=== PATIENT | female | born 1940 | race Caucasian/White ===

== ENCOUNTER 2020-01-22 13:17 | Emergency (ER) | payer MEDICARE, OTHER ==
--- NOTE | 2020-01-22 13:29 | ERPHSYRPT ---
- History of Present Illness Time Seen by Provider: 01/22/20 13:29 Source: patient Exam Limitations: no limitations Physician History: This is an 79-year-old white female who rolled her ankle 2 days ago. She has been been walking on it using a cane to ambulate. The pain has not improved and there is now swelling and some bruising present. Patient is not on any anticoagulation therapy. Method of Injury: twisted Occurred: days ago (2) Quality: aching Severity of Pain-Max: mild Severity of Pain-Current: mild Lower Extremities Pain: foot: right, ankle: right Modifying Factors: Improves With: movement Associated Symptoms: other (Patient can bear weight but hurts to do so) Allergies/Adverse Reactions: cephalexin monohydrate [From Keflex] Allergy (Severe, Verified 01/22/20 13:48) erythromycin base [Erythromycin Base] Allergy (Severe, Verified 01/22/20 13:48) strawberry Allergy (Verified 01/22/20 13:48) Home Medications: Amlodipine Besylate 10 mg [Norvasc 10 MG] 10 mg PO DAILY 08/16/12 [History] Aspirin EC 81 mg [Ecotrin 81 mg] 81 mg PO DAILY 08/16/12 [History] Hydrocodone/Acetaminophen [Hydrocodone-Acetamin 10-325 mg] 1 tab PO TID 01/22/20 [History] Losartan/Hydrochlorothiazide [Losartan-Hctz 100-25 mg Tab] 1 tab PO DAILY 01/22/20 [History] Mirtazapine 15 mg PO DAILY 01/22/20 [History] Temazepam 15 mg [Restoril 15 MG] 15 mg PO HS 01/22/20 [History] Hx Tetanus, Diphtheria Vaccination/Date Given: Yes Hx Influenza Vaccination/Date Given: Yes Hx Pneumococcal Vaccination/Date Given: Yes Travel Risk - International Travel Have you traveled outside of the country in past 3 weeks: No - Coronavirus Screening Are you exhibiting any of the following symptoms?: No Close contact with a COVID-19 positive Pt in past 14-21 Days: No - Review of Systems Constitutional: No Symptoms Eyes: No Symptoms Ears, Nose, & Throat: No Symptoms Respiratory: No Symptoms Cardiac: No Symptoms Abdominal/Gastrointestinal: No Symptoms Genitourinary Symptoms: No Symptoms Musculoskeletal: Injury (Right foot and ankle) Skin: No Symptoms Neurological: No Symptoms Psychological: No Symptoms Endocrine: No Symptoms Hematologic/Lymphatic: No Symptoms Immunological/Allergic: No Symptoms All Other Systems: Reviewed and Negative - Past Medical History Pertinent Past Medical History: Yes Neurological History: No Pertinent History ENT History: Cataracts Cardiac History: Hypertension Respiratory History: No Pertinent History Endocrine Medical History: No Pertinent History Musculoskeletal History: No Pertinent History GI Medical History: No Pertinent History History: No Pertinent History Psycho-Social History: Depression Female Reproductive Disorders: No Pertinent History - Past Surgical History Past Surgical History: Yes Neuro Surgical History: No Pertinent History Cardiac: No Pertinent History Respiratory: No Pertinent History Gastrointestinal: No Pertinent History Genitourinary: No Pertinent History Musculoskeletal: Orthopedic Surgery, Other Female Surgical History: Lumpectomy, Tubal Ligation Other Surgical History: EGD,stevie rotator cuff ,Left knee replacement,stevie feet spurs,,right breast lumpectomy(benign),stevie hallux nail evulsion,stevie cataract removal with lens implant,Tubal Lig. , childbirth x three - Social History Smoking Status: Never smoker Exposure to second hand smoke: Yes Drug Use: none Patient Lives Alone: No - Nursing Vital Signs Nursing Vital Signs: Initial Vital Signs Pulse Rate 84 01/22/20 13:38 Blood Pressure 154/78 01/22/20 13:38 O2 Sat by Pulse Oximetry 96 01/22/20 13:38 Pain Scale Pain Intensity 6 - Physical Exam General Appearance: no apparent distress, alert, anxiety Eyes, Ears, Nose, Throat Exam: normal ENT inspection, moist mucous membranes Neck Exam: normal inspection, non-tender, supple, full range of motion Cardiovascular/Respiratory Exam: chest non-tender, no respiratory distress Gastrointestinal/Abdominal Exam: non-tender Back Exam: normal inspection, normal range of motion, No CVA tenderness, No vertebral tenderness Hips Exam: bilateral: non-tender, normal inspection, normal range of motion, no evidence of injury Legs Exam: bilateral leg: non-tender, normal inspection, normal range of motion, no evidence of injury Knees Exam: bilateral knee: non-tender, normal inspection, normal range of motion, no evidence of injury Ankle Exam: right ankle: bone tenderness, ecchymosis, limited range of motion, soft tissue tenderness, swelling, left ankle: non-tender, normal inspection, normal range of motion, no evidence of injury Foot Exam: right foot: ecchymosis, soft tissue tenderness, swelling, left foot: non-tender, normal inspection, normal range of motion, no evidence of injury Neuro/Tendon Exam: normal sensation, normal motor functions, normal tendon functions Mental Status Exam: alert, oriented x 3, cooperative Skin Exam: normal color, warm, dry SpO2 Interpretation: normal O2 Delivery: Room Air - Course Nursing assessment & vital signs reviewed: Yes Ordered Tests: Active Orders 24 hr Category Date Time Status ANKLE (3 VIEWS) Stat Exams 01/22/20 13:52 Completed FOOT (MINIMUM 3 VIEWS) Stat Exams 01/22/20 13:52 Completed - Progress Progress: unchanged Progress Note: 01/22/20 14:44 X-ray of the right foot reveals no acute fracture or dislocation. X-ray of the right ankle reveals a nondisplaced oblique fracture of the distal fibula. Counseled pt/family regarding: diagnosis, need for follow-up, rad results - Departure Departure Disposition: Home Clinical Impression: Fracture of distal fibula Condition: Stable Critical Care Time: No Referrals: TAMMY SCHNEIDER MD [Primary Care Provider] - [facility]-Ortho M-F [phone] Additional Instructions: Light weightbearing only. Ice pack to site 3 times a day. Follow-up in the [facility] orthopedic clinic tomorrow morning at 8 AM.
--- NOTE | 2020-01-22 14:23 | XRAY ---
Indication: Pain, swelling, and bruising following twisting injury 2 days ago. Comparison: None 3 nonweightbearing views right foot demonstrates osteopenia, moderate 1st MTP degenerative changes, small heel spurs, and small navicularis/cuboid accessory ossicles. No other bony, articular, or soft tissue abnormalities.
--- NOTE | 2020-01-22 14:26 | XRAY ---
Indication: Pain, swelling, and bruising following twisting injury 2 days ago. Comparison: None 3 view right ankle demonstrates nondisplaced oblique fracture distal fibula with soft tissue swelling. Elsewhere osteopenia, small heel spurs, and small cuboid accessory ossicle. No other bony, articular, or soft tissue abnormalities.
[2020-01-22 15:29] VITALS: BP 148/72; PULSE 80; O2SAT 98
== END 2020-01-22 15:55 | disposition home or self-care (01) ==
LOC: ED 13:17
DX: S82.401A Unspecified fracture of shaft of right fibula, initial encounter for closed fracture (principal); M25.571 Pain in right ankle and joints of right foot; X50.1XXA Overexertion from prolonged static or awkward postures, initial encounter; Y93.01 Activity, walking, marching and hiking; Y92.9 Unspecified place or not applicable; Z79.899 Other long term (current) drug therapy; I10 Essential (primary) hypertension
CPT/HCPCS: 29505; 73610; 73630; 99284

== ENCOUNTER 2023-01-25 15:35 | Emergency (ER) | payer MEDICARE, OTHER ==
[2023-01-25 15:50] VITALS: TEMP 97.8
[2023-01-25] MEDS ORDERED: TORAdol 30 mg Injection IM ONE (16:18)
--- NOTE | 2023-01-25 16:25 | ERPHSYRPT ---
- History of Present Illness Source: patient, other (Daughter) Patient Subjective Stated Complaint: Pt states that when she stepped out of bed today her left foot hurt Triage Nursing Assessment: Pt brought by daughter in law to the ER, selina wngarcia, rates pain in left foot as 8-9/10, pain goes across the top of the foot, no swelling or bruising noted, denies injury, denies twisting or rolling it when stepping out of bed, pain with palpatation, doesn't appear to be in any distress Physician History: 82 yo WF w L foot pain starting earlier today. Pain is 10 on scale. She denies injury/fever/gout. Pt using a cane today but usually ambulates wo a walker or cane. Method of Injury: unknown Occurred: other (Today) Quality: constant, aching Severity of Pain-Max: severe Severity of Pain-Current: severe Lower Extremities Pain: foot: left Modifying Factors: Improves With: movement Associated Symptoms: none Allergies/Adverse Reactions: cephalexin monohydrate [From Keflex] Allergy (Severe, Verified 01/25/23 15:50) erythromycin base [Erythromycin Base] Allergy (Severe, Verified 01/25/23 15:50) strawberry Allergy (Verified 01/25/23 15:50) Home Medications: Amlodipine Besylate 10 mg [Norvasc 10 MG] 5 mg PO BID 08/16/12 [History] Aspirin EC 81 mg [Ecotrin 81 mg] 81 mg PO DAILY 08/16/12 [History] Hydrocodone/Acetaminophen [Hydrocodone-Acetamin 10-325 mg] 1 tab PO TID 01/22/20 [History] Mirtazapine 15 mg PO DAILY 01/22/20 [History] Temazepam 15 mg [Restoril 15 MG] 15 mg PO HS 01/22/20 [History] Gabapentin [Neurontin ] 300 mg PO TID 01/25/23 [History] Hydralazine HCl 100 mg PO BID 01/25/23 [History] Losartan Potassium 100 mg PO DAILY 01/25/23 [History] hydrOXYzine HCL [Hydroxyzine HCl] 50 mg PO BID 01/25/23 [History] Hx Tetanus, Diphtheria Vaccination/Date Given: Yes Hx Influenza Vaccination/Date Given: Yes Hx Pneumococcal Vaccination/Date Given: Yes Travel Risk - International Travel Have you traveled outside of the country in past 3 weeks: No - Coronavirus Screening Are you exhibiting any of the following symptoms?: No Close contact with a COVID-19 positive Pt in past 14-21 Days: No - Vaccine Status Have you recieved a Covid-19 vaccination: Yes 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 - Vaccination Dates Dates if Unknown: unk - Review of Systems Constitutional: No Symptoms Eyes: No Symptoms Ears, Nose, & Throat: No Symptoms Respiratory: No Symptoms Cardiac: No Symptoms Abdominal/Gastrointestinal: No Symptoms Genitourinary Symptoms: No Symptoms Skin: No Symptoms Neurological: No Symptoms Psychological: No Symptoms Endocrine: No Symptoms Hematologic/Lymphatic: No Symptoms Immunological/Allergic: No Symptoms - Past Medical History Pertinent Past Medical History: Yes Neurological History: No Pertinent History ENT History: Cataracts Cardiac History: Hypertension Respiratory History: No Pertinent History Endocrine Medical History: No Pertinent History Musculoskeletal History: No Pertinent History GI Medical History: No Pertinent History History: No Pertinent History Psycho-Social History: Depression Female Reproductive Disorders: No Pertinent History - Past Surgical History Past Surgical History: Yes Neuro Surgical History: No Pertinent History Cardiac: No Pertinent History Respiratory: No Pertinent History Gastrointestinal: No Pertinent History Genitourinary: No Pertinent History Musculoskeletal: Orthopedic Surgery, Other Female Surgical History: Lumpectomy, Tubal Ligation Other Surgical History: EGD,stevie rotator cuff ,Left knee replacement,stevie feet spurs,,right breast lumpectomy(benign),stevie hallux nail evulsion,stevie cataract removal with lens implant,Tubal Lig. , childbirth x three - Social History Smoking Status: Never smoker Exposure to second hand smoke: No Drug Use: none Patient Lives Alone: Yes - Nursing Vital Signs Nursing Vital Signs: Initial Vital Signs Temperature 97.8 F 01/25/23 15:41 Pulse Rate 81 01/25/23 15:41 Blood Pressure 122/73 01/25/23 15:41 O2 Sat by Pulse Oximetry 97 01/25/23 15:41 Pain Scale Pain Intensity 4 WNL - Physical Exam General Appearance: no apparent distress Eyes, Ears, Nose, Throat Exam: normal ENT inspection, TMs normal, pharynx constance l, moist mucous membranes Neck Exam: normal inspection, non-tender, supple, full range of motion, No Brudzinski, No Kernig's, No meningismus, No carotid bruit Cardiovascular/Respiratory Exam: normal breath sounds, regular rate/rhythm Gastrointestinal/Abdominal Exam: non-tender, soft Back Exam: normal inspection, normal range of motion, No CVA tenderness, No vertebral tenderness Hips Exam: bilateral: non-tender, normal inspection, normal range of motion, no evidence of injury Legs Exam: bilateral leg: non-tender, normal inspection, normal range of motion, no evidence of injury Knees Exam: bilateral knee: non-tender, normal inspection, normal range of motion, no evidence of injury Ankle Exam: bilateral ankle: non-tender, normal inspection, normal range of motion, no evidence of injury Foot Exam: left foot: other (L dorsal foot very TTP/Good pedal pulse, distal sensation, and capillary return/No edema or erythema/Good pedal pulse, distal sensation, and capillary return) Neuro/Tendon Exam: normal sensation, normal motor functions, normal tendon functions, responds to pain Mental Status Exam: alert, oriented x 3, cooperative Skin Exam: normal color, warm, dry SpO2 Interpretation: normal SpO2: 97 O2 Delivery: Room Air - Course Nursing assessment & vital signs reviewed: Yes - Radiology Exams Foot X-ray Interpretation: Reviewed by me (L foot neg for fx), Discussed w/ radiologist - CT Exams Lower Extremity CT Interpretation: Discussed w/radiologist (L cortical talar fx) Ordered Tests: Active Orders 24 hr Category Date Time Status FOOT (MINIMUM 3 VIEWS) Stat Exams 01/25/23 15:59 Completed LOWER EXTREMITY WO CONTRAST [CT] Stat Exams 01/25/23 18:17 Taken ESR [Erythrocyte Sedimentation Rate] Stat Lab 01/25/23 17:25 Completed Uric Acid Stat Lab 01/25/23 17:25 Completed Medication Summary Discontinued Medications Generic Name Dose Route Start Last Admin Trade Name Rossy PRN Reason Stop Dose Admin Hydrocodone Bitart/Acetaminophen 2 tab 01/25/23 19:21 01/25/23 19:27 Hydrocodone/Apap 5/325 1 Tab Tablet PO 01/25/23 19:22 2 tab SENT HOME W/ PATIENT ONE Administration Hydrocodone Bitart/Acetaminophen Confirm 01/25/23 19:23 Hydrocodone/Apap 5/325 1 Tab Tablet Administered 01/25/23 19:24 Dose 2 tab .ROUTE .STK-MED ONE Ketorolac Tromethamine 15 mg 01/25/23 16:18 01/25/23 16:36 Ketorolac Tromethamine 30 Mg/Ml Inj IM 01/25/23 16:19 15 mg STAT ONE Administration Ketorolac Tromethamine Confirm 01/25/23 16:34 Ketorolac Tromethamine 30 Mg/Ml Inj Administered 01/25/23 16:35 Dose 30 mg .ROUTE .STK-MED ONE Lab/Rad Data: Laboratory Results 01/25/23 01/25/23 Range/Units 17:25 17:25 ESR 32 H (0-20) mm/hr Uric Acid 3.8 (2.6-6.0) mg/dL - Progress Progress Note: 01/25/23 19:32 Nursing note and vital signs reviewed No food or housing insecurities noted Additional history per daughter and later son 15mg IM Toradol w improvement in pain XR result reviewed and shared w pt/family Lab results reviewed and shared w pt/family CT result reviewed and shared w pt/family Pt to f/u w Dr. Denny Efra wrap/post-op shoe L foot per nursing/NVI 01/25/23 19:36 Counseled pt/family regarding: lab results, diagnosis, need for follow-up, rad results Medical Desision Making - Independent Historian Additional History obtained from: Child - Diagnostic Testing Radiological Interpretation: Reviewed by me, Discussed w/ radiologist - Risk of complications The pt has a mod risk of morbidity or mortality based on: Need for prescription drug management - Departure Departure Disposition: Home Clinical Impression: Fracture of left talus Condition: Stable Critical Care Time: No Referrals: TAMMY SCHNEIDER MD [Primary Care Provider] - Follow up/PCP as directed MALVIN DUARTE DPM [ACTIVE STAFF] - Follow up/PCP as directed Instructions: Ankle Fracture (DC) Additional Instructions: Pain meds as needed(Stool softener w pain meds) Follow up with Orthopedic clinic on Sunday 8-10 AM Ice for 12-24 hours No weight bearing Prescriptions: Hydrocodone/Acetaminophen [Hydrocodone-Acetamin 5-325 mg] 1 tab PO Q6HPRN PRN #8 tablet MDD 4 PRN Reason: Pain
[2023-01-25] MEDS ORDERED: TORAdol 30 mg Injection ONE (16:34)
--- NOTE | 2023-01-25 16:56 | XRAY ---
Indication: pain. Comparison: None 3 nonweightbearing views left foot demonstrates osteopenia, tiny spurring head 5th metatarsal, small heel spurs, tiny cuboid accessory ossicle, and mild scattered vascular calcifications. No other bony, articular, or soft tissue abnormalities.
[2023-01-25 17:54] VITALS: BP 145/57
[2023-01-25 19:21] VITALS: O2SAT 97
[2023-01-25] MEDS ORDERED: NORCO 5/325 MG PO ONE (19:21)
[2023-01-25] MEDS ORDERED: NORCO 5/325 MG ONE (19:23)
[2023-01-25 19:30] VITALS: PULSE 89; RESP 18
--- NOTE | 2023-01-26 09:08 | XRAY ---
Indication: Pain. No known injury. Multiple contiguous axial images obtained through the left ankle/foot without contrast. Sagittal and coronal reformatted images obtained. Comparison: None Osseous structures demineralized. Left ankle/foot mortise appears anatomic. Negative for tarsal coalition. Tibial plafond and talar dome appears smooth. Lateral margin talus demonstrates tiny linear/curvilinear ossifications concerning for cortical fracture of uncertain chronicity. Distal tibialis posterior tendon demonstrates tiny curvilinear ossifications adjacent to navicular. Peroneous longus tendon demonstrates similar ossifications as it courses adjacent to the cuboid. Above tendon ossifications presumed sequela old injury/inflammation. Incidental small posterior/plantar heel spurs and small cuboid accessory ossicle. No focal solid/cystic soft tissue mass or abnormal fluid collection. Remaining visualized noncontrasted soft tissues including Achilles tendon unremarkable. Impression: 1. Cortical fracture lateral margin talus of uncertain chronicity. 2. 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 3. Incidental osteopenia and heel spurs.
== END 2023-01-25 19:45 | disposition home or self-care (01) ==
LOC: ED 15:35
DX: S92.192A Other fracture of left talus, initial encounter for closed fracture (principal); M79.672 Pain in left foot; I10 Essential (primary) hypertension; Z79.891 Long term (current) use of opiate analgesic; Z79.899 Other long term (current) drug therapy
CPT/HCPCS: 36415; 73630; 73700; 84550; 85652; 96372; 99284; J1885; A9270-GY

== ENCOUNTER 2024-02-08 17:41 | Emergency (ER) | payer MEDICARE, OTHER ==
[2024-02-08 18:07] VITALS: TEMP 98.3
--- NOTE | 2024-02-08 18:40 | ERPHSYRPT ---
- History of Present Illness Source: patient, EMS Exam Limitations: no limitations Patient Subjective Stated Complaint: Pt reports she tripped when getting out of vehicle and fell. Complaining of pain to sternum, head and neck. States she thinks she hit her head but did not loose consciousness. Triage Nursing Assessment: Pt alert and oriented x3. Respirations easy/nonlabored. Skin w/p/d. Ambulate with cane. No obvious deformities/contusions/skin discoloration to head/neck/chest. Hx Tetanus, Diphtheria Vaccination/Date Given: Yes Hx Influenza Vaccination/Date Given: Yes (2022) Hx Pneumococcal Vaccination/Date Given: Yes <NERY MITCHELL - Last Filed: 02/08/24 18:37> <BERNIE ROSAS - Last Filed: 02/08/24 20:07> - History of Present Illness Time Seen by Provider: 02/08/24 17:44 Physician History: 83-year-old with history of hypertension is brought in the ER by EMS after she was getting out of her truck, tripped and fell forward hitting her chest against the ground. Did hit her head as well. No loss of consciousness. Patient is complaining of pain mainly in the sternum with no difficulty breathing. Pain is aggravated with palpation and deep breathing. No abdominal pain nausea or vomiting. Denies any numbness tingling or focal weakness. Minimal headache. Denies any neck pain. No weakness of upper or lower extremities. She has minimal abrasion to the chin. (NERY MITCHELL) Allergies/Adverse Reactions: cephalexin monohydrate [From Keflex] Allergy (Severe, Verified 02/08/24 18:00) erythromycin base [Erythromycin Base] Allergy (Severe, Verified 02/08/24 18:00) strawberry Allergy (Verified 02/08/24 18:00) Home Medications: Amlodipine Besylate 10 mg [Norvasc 10 MG] 5 mg PO BID 08/16/12 [History] Aspirin EC 81 mg [Ecotrin 81 mg] 81 mg PO DAILY 08/16/12 [History] Hydrocodone/Acetaminophen [Hydrocodone-Acetamin 10-325 mg] 1 tab PO TID 01/22/20 [History] Mirtazapine 15 mg PO DAILY 01/22/20 [History] Temazepam 15 mg [Restoril 15 MG] 15 mg PO HS 01/22/20 [History] Gabapentin [Neurontin ] 300 mg PO TID 01/25/23 [History] Hydralazine HCl 100 mg PO BID 01/25/23 [History] Losartan Potassium 100 mg PO DAILY 01/25/23 [History] hydrOXYzine HCL [Hydroxyzine HCl] 50 mg PO BID 01/25/23 [History] Travel Risk - International Travel Have you traveled outside of the country in past 3 weeks: No - Emerging Infectious Disease Are you exhibiting symptoms associated with any current EIDs: No <NERY MITCHELL - Last Filed: 02/08/24 18:37> - Review of Systems Constitutional: No Symptoms Eyes: No Symptoms, Foreign Body Sensation Ears, Nose, & Throat: Mouth Pain Respiratory: No Symptoms Cardiac: Chest Pain Abdominal/Gastrointestinal: No Symptoms Genitourinary Symptoms: No Symptoms Musculoskeletal: Fall Skin: Skin Lesions Neurological: No Symptoms Hematologic/Lymphatic: No Symptoms Immunological/Allergic: No Symptoms <NERY MITCHELL - Last Filed: 02/08/24 18:37> - Past Medical History Pertinent Past Medical History: Yes Neurological History: Migraines ENT History: Cataracts Cardiac History: Hypertension Respiratory History: No Pertinent History Endocrine Medical History: No Pertinent History Musculoskeletal History: Osteoarthritis, Osteoporosis, Other GI Medical History: No Pertinent History History: No Pertinent History Psycho-Social History: Depression Female Reproductive Disorders: No Pertinent History Other Medical History: DAUGHTER PRESENT - STATES HX OF OSTEOPOROSIS/PENIA BUT PATIENT DIDN'T REMEMBER. DAUGHTER ALSO STATES SCOLIOSIS. SX HX: LEFT ROTATOR CUFF REPAIRS, BILATERAL TOTAL KNEE REPLACEMENTS MOST RECENT WAS LEFT BUT > 10 YEARS AGO. - Past Surgical History Past Surgical History: Yes Neuro Surgical History: No Pertinent History Cardiac: No Pertinent History Respiratory: No Pertinent History Gastrointestinal: No Pertinent History Genitourinary: No Pertinent History Musculoskeletal: Orthopedic Surgery, Other Female Surgical History: Lumpectomy, Tubal Ligation Other Surgical History: EGD,stevie rotator cuff ,Left knee replacement,stevie feet spu rs,,right breast lumpectomy(benign),stevie hallux nail evulsion,stevie cataract removal with lens implant,Tubal Lig. , childbirth x three - Social History Smoking Status: Never smoker Exposure to second hand smoke: No Drug Use: none Patient Lives Alone: Yes - Social Determinants of Health Will the patient participate in the screening: Declined to provide <NERY MITCHELL - Last Filed: 02/08/24 18:37> - [place] Coma Score Best Eye Response ([place]): (4) open spontaneously Best Verbal Response ([place]): (5) oriented Best Motor Response ([place]): (6) obeys commands [place] Total: 15 - Physical Exam General Appearance: no apparent distress, alert Head Injury: no evidence of injury, No Rosen's Sign, No contusions, No tenderness Eye Exam: PERRL/EOMI, eyes nml inspection ENT Exam: airway nml, other (Superficial abrasions to the chin) Neck Exam: supple, trachea midline, full range of motion, normal alignment, normal inspection Respiratory/Chest Exam: chest tenderness (Midsternal area with no crepitus), normal breath sounds, No respiratory distress Cardiovascular Exam: normal heart sounds, regular rate/rhythm Gastrointestinal Exam: soft, normal bowel sounds, No tenderness Back Exam: normal inspection, normal range of motion Extremity Exam: normal inspection, normal range of motion, capillary refill <3 sec Neurologic Exam: alert, oriented x 3, cooperative, 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 nml as tested, normal mood/affect, sensation nml, No nml cerebellar function, No motor deficits Skin Exam: normal color SpO2 Interpretation: normal SpO2: 95 O2 Delivery: Room Air <NERY MITCHELL - Last Filed: 02/08/24 18:37> - Nursing Vital Signs Nursing Vital Signs: Initial Vital Signs Temperature 98.3 F 02/08/24 17:53 Pulse Rate 72 02/08/24 17:53 Respiratory Rate 17 02/08/24 17:53 Blood Pressure 235/86 02/08/24 17:53 O2 Sat by Pulse Oximetry 98 02/08/24 17:53 Pain Scale Pain Intensity 5 - Course Nursing assessment & vital signs reviewed: Yes <BERNIE ROSAS - Last Filed: 02/08/24 20:07> Ordered Tests: Active Orders 24 hr Category Date Time Status CERVICAL SPINE WO CONTRAST [CT] Stat Exams 02/08/24 18:18 Completed CHEST WITHOUT CONTRAST [CT] Stat Exams 02/08/24 18:18 Completed HEAD WITHOUT CONTRAST [CT] Stat Exams 02/08/24 18:17 Completed Medication Summary Discontinued Medications Generic Name Dose Route Start Last Admin Trade Name Rossy PRN Reason Stop Dose Admin Acetaminophen 975 mg 02/08/24 18:39 02/08/24 18:48 Acetaminophen 325 Mg Tablet PO 02/08/24 18:40 975 mg STAT STA Administration Acetaminophen Confirm 02/08/24 18:47 Acetaminophen 325 Mg Tablet Administered 02/08/24 18:48 Dose 975 mg .ROUTE .STK-MED ONE Hydralazine HCl 10 mg 02/08/24 18:46 02/08/24 18:48 Hydralazine Hcl 20 Mg/Ml Vial IV 02/08/24 18:47 10 mg STAT ONE Administration Hydralazine HCl Confirm 02/08/24 18:47 Hydralazine Hcl 20 Mg/Ml Vial Administered 02/08/24 18:48 Dose 20 mg .ROUTE .STK-MED ONE - Progress Progress: improved, pain not gone completely Counseled pt/family regarding: diagnosis, need for follow-up, rad results <BERNIE ROSAS - Last Filed: 02/08/24 20:07> - Progress Progress Note: 02/08/24 19:[address] scan of the chest without contrast was interpreted by the radiologist. The impression states few bilateral pulmonary nodular densities likely granulomas. There are no pulmonary contusions or pneumothorax. There is anterior wedging of T9 vertebral body, likely secondary to osteoporosis. There is mild cardiomegaly with mild pericardial thickening/effusion. CT scan of the head without contrast shows no intracranial bleed or territorial infarction seen 02/08/24 20:[address] scan of the cervical spine without contrast was interpreted by the radiologist and I reviewed the impression. The impression states no acute osseous abnormality. There is straightening with grade 1 anterolisthesis at C2- C3 level. There is multilevel cervical spondylitic changes with disc bulges more evident in the lower cervical spine. The left thyroid lobe shows a heterogeneous nodule present. Ultrasound correlation recommended. I discussed these findings with the patient and her family. (BERNIE ROSAS) Medical Desision Making - Independent Historian Additional History obtained from: Family - Diagnostic Testing Diagnostic test were ordered, analyzed, and reviewed by me: Yes Radiological Interpretation: Reviewed by me, Teleradiologist Report - Risk of complications Low Risk: Low risk of morbidity from additional dx testing or treatment <BERNIE ROSAS - Last Filed: 02/08/24 20:07> <NERY MITCHELL - Last Filed: 02/08/24 18:37> - Departure Departure Disposition: Home Critical Care Time: No <ARON ROSASDO BraedenAroldo - Last Filed: 02/08/24 20:07> - Departure Clinical Impression: Fall with no significant injury, Left thyroid nodule Condition: Stable Referrals: TAMMY SCHNEIDER MD [Primary Care Provider] - Follow up/PCP as directed Additional Instructions: Take all your medications as prescribed. Call your primary care provider on 02/11/2024, to make arrangements for a follow-up appointment to be seen in the next 3 to 5 days. Discussed the left thyroid nodule with your primary care provider. Return to the emergency department if there is any concerns or new areas of aches and pains prior to 02/11/2024
[2024-02-08] MEDS ORDERED: TYLENOL 325 MG ONE (18:47)
[2024-02-08] MEDS ORDERED: APRESOLINE 20 MG/ML INJ ONE (18:47)
[2024-02-08] MEDS: APRESOLINE 20 MG/ML INJ IV ONE (18:48)
[2024-02-08] MEDS: TYLENOL 325 MG PO STA (18:48)
--- NOTE | 2024-02-08 19:42 | XRAY ---
CLINICAL HISTORY: fall COMPARISON: None. TECHNIQUE: An axial non-contrast CT scan of the brain was performed from the skull base to the high parietal region with coronal and sagittal reformats. One of the following dose reduction techniques was utilized for this exam: Automated exposure control, adjustment of the mA and/or kV according to patient size, and use of iterative reconstruction. CTDI;72.29mGy, DLP: 1507.31mGy*cm. FINDINGS: Brain Parenchyma: There is evidence of bilateral periventricular and subcortical and deep white matter hypodensities involving both cerebral hemispheres. Juárez-white matter differentiation is however preserved. No evidence of acute infarct, hemorrhage, or mass effect. Ventricular System: Mildly prominent intra and extra-ventricular CSF spaces are noted signifying senile involutionary changes in the brain. Subarachnoid Spaces: No evidence of subarachnoid hemorrhage or extra-axial fluid collections. Cerebellum and Brainstem: Normal size and signal. No masses, lesions, or areas of abnormal signal. Orbits: Normal appearance of the globes, optic nerves, and extraocular muscles. No evidence of orbital masses or abnormal signals. Sinuses: Clear paranasal sinuses. No evidence of sinusitis or mucosal thickening. Mastoid Air Cells: Clear mastoid air cells. No evidence of mastoiditis. Skull and Meninges: Normal skull morphology. IMPRESSION: 1. The above-mentioned findings likely signify extensive microvascular ischemic changes and senile changes. 2. No intracranial bleed or territorial infarct is seen. 3. Early changes of acute ischemia are sometimes not visible on CT , further evaluation with MRI is suggested. Electronically Signed by: Camilla Herrmann MD. (02/08/2024 19:39:11 EDT)
--- NOTE | 2024-02-08 19:47 | XRAY ---
CLINICAL HISTORY: fall COMPARISON: None. TECHNIQUE: Contiguous axial CT images of the chest were acquired without administration of intravenous contrast. Coronal and sagittal reconstructions were obtained. One of the following dose reduction techniques were utilized for this exam: Automated exposure control, adjustment of the mA and/or kV according to patient size, use of iterative reconstruction. FINDINGS: Lungs: Few bilateral pulmonary, predominantly subpleural nodular densities seen measuring up to 5 mm (inferior lingular nodule ), some of them are seen calcified likely granulomatous. No pulmonary mass lesions. No pulmonary contusion or pneumothorax. Bilateral basal pulmonary atelectatic bands. No evidence of interstitial lung disease or emphysema. No pleural effusion or pleural thickening. Mediastinum: The mediastinum is normal in size and contour. No mediastinal mass or abnormal lymphadenopathy. Mild cardiomegaly with mild pericardial thickening/effusion. Atheromatous calcification of the aorta. Hilar Structures: The hilar structures appear normal without enlargement or abnormality. Trachea and Main Bronchi: The trachea and main bronchi are patent without evidence of obstruction or abnormality. Chest Wall: The chest wall is unremarkable with no evidence of soft tissue or bony abnormalities. Lower neck : Left thyroid lobe nodule measuring 2.4 X 2.8 cm (for further US assessment ). Upper Abdomen: Gall bladder stone is noted. Bones: Spondylodegenrative changes. Osteopenia. Anterior wedging of the T9 vertebral body (likely osteoporotic fracture). Internal fixation of left humeral head by metallic screw. Old healed fracture of lateral segment of right 10th rib. Osteoarthritic changes of both glenohumeral joints. IMPRESSION: 1. Few bilateral pulmonary nodular densities (some are calcified ), likely granulomatous. As per Fleischner Society guidelines, no follow-up needed if low risk. 2. No pulmonary contusion or pneumothorax. 3. Anterior wedging of the T9 vertebral body (likely osteoporotic fracture). 4. Left thyroid lobe nodule for US assessment. 5. Mild cardiomegaly with mild pericardial thickening/effusion. Electronically Signed by: Camilla Herrmann MD. (02/08/2024 19:42:23 EDT)
--- NOTE | 2024-02-08 20:03 | XRAY ---
CLINICAL HISTORY: fall COMPARISON: No previous studies are available for comparison. TECHNIQUE: CT scan of the cervical spine was performed without the administration of intravenous contrast. Contiguous axial images were obtained from the skull base to the upper thoracic spine. Coronal and sagittal reformatted images were also reviewed. One of the following dose-reduction techniques was utilized for this exam. Automated exposure control, adjustment of the mA and/or kV according to patient size, and use of iterative reconstruction. CTDI:72.29mGy, DLP: 1507.31mGy*cm. FINDINGS: Vertebrae: Straightening of the cervical spine is seen signifying muscle spasm. Grade 1 anterolisthesis of C2 over C3 is appreciated. The vertebral bodies are normal in height. No evidence of acute fracture or dislocation. Diffuse osteopenic bones. No signs of lytic or sclerotic lesions. Normal configuration of the posterior elements. Intervertebral Discs: Markedly reduced intervertebral disc spaces involving the entire cervical spine with endplate sclerosis and irregularities with osteophyte formation. Calcification of ligament around the odontoid peg. Disc osteophyte complex bulging in the cervical canal is more significant at C5-C6 and C6-C7 levels. Facet Joints: The facet joints are showing arthropathic changes Neural Foramina: Neural foraminal narrowing involving the lower cervical spine. Prevertebral Soft Tissues: The prevertebral soft tissues are normal in thickness without evidence of mass or abnormal fluid collection. Additional Findings: A hypodense heterogenous nodule in the left lobe of the thyroid measuring 32 x 20 mm. Calcified subpleural nodule in the apical segment of the right upper lobe. No other significant gluing pathology. IMPRESSION: 1. No acute osseous abnormality is seen. 2. Straightening with grade I anterolisthesis at C2-C3 level. 3. Multilevel cervical spondylotic changes with disc bulges are more evident in the lower cervical spine. 4. Left thyroid lobe heterogenous nodule measuring 32 x 20mm., for US correlation. Electronically Signed by: Camilla Herrmann MD. (02/08/2024 19:58:10 EDT)
[2024-02-08 20:05] VITALS: BP 179/99; PULSE 84; RESP 20; O2SAT 96
== END 2024-02-08 20:33 | disposition home or self-care (01) ==
LOC: ED 17:41
DX: Z04.3 Encounter for examination and observation following other accident (principal); E04.1 Nontoxic single thyroid nodule; R07.9 Chest pain, unspecified; I10 Essential (primary) hypertension; Z79.899 Other long term (current) drug therapy
CPT/HCPCS: 36000; 70450; 71250; 72125; 96374; 99284; J0360; A9270-GY

== ENCOUNTER 2025-02-20 09:26 | Observation (INO) | payer MEDICARE, OTHER ==
--- NOTE | 2025-02-20 09:40 | ERPHSYRPT ---
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 Patient's primary care provider is Dr. Schneider but she was seeing a different provider this morning. Patient was found to be confused and therefore she was brought to our facility where she was alert she was oriented to self and location but did not recall the year and her age. There was no loss of consciousness but only confusion. It was reported to me from the paramedics that there is a baseline level of confusion that may have been worsening even before her hitting her head. This is still unclear. Patient has a history of hypertension, migraine headaches and depression as well as osteoporosis. Patient is not on any anticoagulation therapy. Occurred: just prior to arrival Injuries/Pain Location: head, lower extremity (Right knee) Loss of Consciousness: no loss of consciousness Quality: aching Severity of Pain-Max: mild (To moderate) Severity of Pain-Current: mild Modifying Factors: Improves With: movement Associated Symptoms (Fall): confusion, extremity injury (Right knee), No chest pain, No neck pain, No shortness of breath, No slurred speech, No vision changes Allergies/Adverse Reactions: cephalexin monohydrate [From Keflex] Allergy (Severe, Verified 02/20/25 09:29) erythromycin base [Erythromycin Base] Allergy (Severe, Verified 02/20/25 09:29) azithromycin Allergy (Verified 02/20/25 09:29) strawberry Allergy (Verified 02/20/25 09:29) Home Medications: Amlodipine Besylate 10 mg [Norvasc 10 MG] 5 mg PO BID 08/16/12 [History] Aspirin EC 81 mg [Ecotrin 81 mg] 81 mg PO DAILY 08/16/12 [History] Hydrocodone/Acetaminophen [Hydrocodone-Acetamin 10-325 mg] 1 tab PO TID 01/22/20 [History] Mirtazapine 15 mg PO DAILY 01/22/20 [History] Temazepam 15 mg [Restoril 15 MG] 15 mg PO HS 01/22/20 [History] Gabapentin [Neurontin ] 300 mg PO TID 01/25/23 [History] Hydralazine HCl 100 mg PO BID 01/25/23 [History] Losartan Potassium 100 mg PO DAILY 01/25/23 [History] hydrOXYzine HCL [Hydroxyzine HCl] 50 mg PO BID 01/25/23 [History] Hx Tetanus, Diphtheria Vaccination/Date Given: Yes Hx Influenza Vaccination/Date Given: Yes (2022) Hx Pneumococcal Vaccination/Date Given: Yes Travel Risk - International Travel Have you traveled outside of the country in past 3 weeks: No - Emerging Infectious Disease Are you exhibiting symptoms associated with any current EIDs: No - Review of Systems Constitutional: No Symptoms Eyes: No Symptoms Ears, Nose, & Throat: No Symptoms Respiratory: No Symptoms Cardiac: No Symptoms Abdominal/Gastrointestinal: No Symptoms Genitourinary Symptoms: No Symptoms Musculoskeletal: Fall, Injury (Right knee) Skin: No Symptoms Neurological: Other (Confusion mild) Psychological: No Symptoms Endocrine: No Symptoms Hematologic/Lymphatic: No Symptoms Immunological/Allergic: No Symptoms All Other Systems: Reviewed and Negative - Past Medical History Pertinent Past Medical History: Yes Neurological History: Migraines ENT History: Cataracts Cardiac History: Hypertension Respiratory History: No Pertinent History Endocrine Medical History: No Pertinent History Musculoskeletal History: Osteoarthritis, Osteoporosis, Other GI Medical History: No Pertinent History History: No Pertinent History Psycho-Social History: Depression Female Reproductive Disorders: No Pertinent History Other Medical History: DAUGHTER PRESENT - STATES HX OF OSTEOPOROSIS/PENIA BUT PATIENT DIDN'T REMEMBER. DAUGHTER ALSO STATES SCOLIOSIS. SX HX: LEFT ROTATOR CUFF REPAIRS, BILATERAL TOTAL KNEE REPLACEMENTS MOST RECENT WAS LEFT BUT > 10 YEARS AGO. - Past Surgical History Past Surgical History: Yes Neuro Surgical History: No Pertinent History Cardiac: No Pertinent History Respiratory: No Pertinent History Gastrointestinal: No Pertinent History Genitourinary: No Pertinent History Musculoskeletal: Orthopedic Surgery, Other Female Surgical History: Lumpectomy, Tubal Ligation Other Surgical History: EGD,stevie rotator cuff ,Left knee replacement,stevie feet spurs,,right breast lumpectomy(benign),stevie hallux nail evulsion,stevie cataract removal with lens implant,Tubal Lig. , childbirth x three - Social History Smoking Status: Never smoker Exposure to second hand smoke: No Drug Use: none Patient Lives Alone: Yes - Social Determinants of Health Will the patient participate in the screening: Declined to provide - Nursing Vital Signs Nursing Vital Signs: Initial Vital Signs Temperature 97.9 F 02/20/25 09:30 Pulse Rate 85 02/20/25 09:30 Respiratory Rate 17 02/20/25 09:30 Blood Pressure 222/115 02/20/25 09:30 O2 Sat by Pulse Oximetry 95 02/20/25 09:30 Pain Scale Pain Intensity 3 - Vasu Coma Score Best Eye Response (Rosamond): (4) open spontaneously Best Verbal Response (Rosamond): (5) oriented Best Motor Response (Rosamond): (6) obeys commands Vasu Total: 15 - Physical Exam General Appearance: no apparent distress, alert, anxiety Head Injury: contusions (Right eyebrow and forehead), swelling (Right eyebrow and forehead), tenderness (Right eyebrow and forehead) Eye Exam: PERRL/EOMI, eyes nml inspection ENT Exam: airway nml, nml ext.inspection, No evidence of ENT injury Neck Exam: supple, trachea midline, full range of motion, normal alignment, normal inspection Respiratory/Chest Exam: normal breath sounds, No chest tenderness, No respiratory distress, No ecchymosis, No crepitus Cardiovascular Exam: normal heart sounds, regular rate/rhythm Gastrointestinal Exam: soft, normal bowel sounds, tenderness, No guarding Rectal Exam: not done Back Exam: normal inspection, normal range of motion, No CVA tenderness Extremity Exam: normal range of motion, pelvis stable, tenderness (Anterior right knee) Neurologic Exam: alert, oriented x 3, cooperative, metal buggy operator II-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 QTc 463. No acute ischemia) Ordered Tests: Active Orders 24 hr Category Date Time Status Meat Clerk STAT Care 02/20/25 09:47 Active EKG-ER Only STAT Care 02/20/25 09:46 Active IV Insertion STAT Care 02/20/25 09:46 Active NPO (ED) STAT Care 02/20/25 09:46 Active POCT Glucose Check STAT Care 02/20/25 09:46 Active Pulse Oximetry (ED) STAT Care 02/20/25 09:46 Active CERVICAL SPINE WO CONTRAST [CT] Stat Exams 02/20/25 09:48 Completed HEAD WITHOUT CONTRAST [CT] Stat Exams 02/20/25 10:19 Completed KNEE (3 VIEWS) Stat Exams 02/20/25 10:30 Completed CBC W DIFF Stat Lab 02/20/25 09:55 Completed CMP Stat Lab 02/20/25 09:55 Completed CULTURE,URINE Stat Lab 02/20/25 10:11 Received POCT GLUCOSE Stat Lab 02/20/25 09:56 Completed UA W/RFX UR CULTURE Stat Lab 02/20/25 10:11 Completed Medication Summary Discontinued Medications Generic Name Dose Route Start Last Admin Trade Name Freq PRN Reason Stop Dose Admin Acetaminophen 650 mg 02/20/25 12:18 02/20/25 12:24 Acetaminophen 325 Mg Tablet PO 02/20/25 12:19 650 mg STAT ONE Administration Acetaminophen Confirm 02/20/25 12:23 Acetaminophen 325 Mg Tablet Administered 02/20/25 12:24 Dose 650 mg .ROUTE .STK-MED ONE Hydralazine HCl 10 mg 02/20/25 09:50 02/20/25 10:01 Hydralazine Hcl 20 Mg/Ml Vial IV 02/20/25 09:51 10 mg STAT ONE Administration Hydralazine HCl Confirm 02/20/25 09:58 Hydralazine Hcl 20 Mg/Ml Vial Administered 02/20/25 09:59 Dose 20 mg .ROUTE .STK-MED ONE Hydralazine HCl 10 mg 02/20/25 11:24 02/20/25 11:28 Hydralazine Hcl 20 Mg/Ml Vial IV 02/20/25 11:25 10 mg STAT ONE Administration Hydralazine HCl Confirm 02/20/25 11:27 Hydralazine Hcl 20 Mg/Ml Vial Administered 02/20/25 11:28 Dose 20 mg .ROUTE .STK-MED ONE Lab/Rad Data: Laboratory Result Diagrams 02/20/25 09:55 02/20/25 09:55 Laboratory Results 02/20/25 02/20/25 02/20/25 Range/Units 10:11 09:56 09:55 WBC (3.98-10.04) x10^3/uL RBC (3.93-5.22) x10^6/uL Hgb (11.2-15.7) g/dL Hct (34.1-44.9) % MCV (79.4-94.8) fL MCH (25.6-32.2) pg MCHC (32.2-35.5) g/dL RDW (11.7-14.4) % Plt Count (182-369) x10^3/uL MPV (9.4-12.3) fL Gran % (34.0-71.1) % Immature Gran % (Auto) (0.001-0.429) % Nucleat RBC Rel Count (0.00-0.2) % Eos # (Auto) (0.04-0.36) x10^3/uL Immature Gran # (Auto) (0.001-0.031) x10^3u/L Absolute Lymphs (auto) (1.18-3.74) x10^3/uL Absolute Monos (auto) (0.24-0.86) x10^3/uL Absolute Nucleated RBC (0.00-0.012) x10^3u/L Lymphocytes % (19.3-51.7) % Monocytes % (4.7-12.5) % Eosinophils % (0.7-5.8) % Basophils % (0.1-1.2) % Absolute Granulocytes (1.56-6.13) x10^3/uL Basophils # (0.01-0.08) x10^3/uL Sodium 134 L (135-145) mmol/L Potassium 4.3 (3.5-5.1) mmol/L Chloride 102 (98-107) mmol/L Carbon Dioxide 26 (22-30) mmol/L Anion Gap 10.6 (5-15) MEQ/L BUN 14 (7-17) mg/dL Creatinine 0.73 (0.52-1.04) mg/dL Estimated GFR 80.5 ML/MIN Glucose 104 (74-106) mg/dL POC Glucometer 101 (74 to 106) mg/dL Calcium 9.2 (8.4-10.2) mg/dL Total Bilirubin 1.20 (0.2-1.3) mg/dL AST 30 (14-36) U/L ALT 16 (0-35) U/L Alkaline Phosphatase 86 (38-126) U/L Serum Total Protein 7.7 (6.3-8.2) g/dL Albumin 4.5 (3.5-5.0) g/dL Urine Color Yellow (Yellow) Urine Appearance Clear (Clear) Urine pH 7.0 (4.6-8.0) Ur Specific Douglass <=1.005 (1.005-1.030) Urine Protein Negative (Negative) Urine Glucose (UA) Negative (Negative) mg/dL Urine Ketones Negative (Negative) Urine Blood Negative (Negative) Urine Nitrite Negative (Negative) Urine Bilirubin Negative (Negative) Urine Urobilinogen 0.2 (0.2) mg/dL Ur Leukocyte Esterase Negative (Negative) U Hyaline Cast (Auto) NONE SEEN (0-2) /LPF Urine Microscopic RBC 0-2 (0-5) /HPF Urine Microscopic WBC 0-2 (0-5) /HPF Ur Epithelial Cells None Seen (None Seen) /HPF Urine Bacteria Few A (None Seen) /HPF Urine Culture Reflexed ORDERED SEPARATELY (NO) 02/20/25 Range/Units 09:55 WBC 6.5 (3.98-10.04) x10^3/uL RBC 4.69 (3.93-5.22) x10^6/uL Hgb 12.6 (11.2-15.7) g/dL Hct 38.4 (34.1-44.9) % MCV 81.9 (79.4-94.8) fL MCH 26.9 (25.6-32.2) pg MCHC 32.8 (32.2-35.5) g/dL RDW 13.3 (11.7-14.4) % Plt Count 312 (182-369) x10^3/uL MPV 9.6 (9.4-12.3) fL Gran % 67.8 (34.0-71.1) % Immature Gran % (Auto) 0.6 H (0.001-0.429) % Nucleat RBC Rel Count 0.0 (0.00-0.2) % Eos # (Auto) 0.14 (0.04-0.36) x10^3/uL Immature Gran # (Auto) 0.04 H (0.001-0.031) x10^3u/L Absolute Lymphs (auto) 1.13 L (1.18-3.74) x10^3/uL Absolute Monos (auto) 0.72 (0.24-0.86) x10^3/uL Absolute Nucleated RBC 0.00 (0.00-0.012) x10^3u/L Lymphocytes % 17.3 L (19.3-51.7) % Monocytes % 11.0 (4.7-12.5) % Eosinophils % 2.1 (0.7-5.8) % Basophils % 1.2 (0.1-1.2) % Absolute Granulocytes 4.41 (1.56-6.13) x10^3/uL Basophils # 0.08 (0.01-0.08) x10^3/uL Sodium (135-145) mmol/L Potassium (3.5-5.1) mmol/L Chloride (98-107) mmol/L Carbon Dioxide (22-30) mmol/L Anion Gap (5-15) MEQ/L BUN (7-17) mg/dL Creatinine (0.52-1.04) mg/dL Estimated GFR ML/MIN Glucose (74-106) mg/dL POC Glucometer (74 to 106) mg/dL Calcium (8.4-10.2) mg/dL Total Bilirubin (0.2-1.3) mg/dL AST (14-36) U/L ALT (0-35) U/L Alkaline Phosphatase (38-126) U/L Serum Total Protein (6.3-8.2) g/dL Albumin (3.5-5.0) g/dL Urine Color (Yellow) Urine Appearance (Clear) Urine pH (4.6-8.0) Ur Specific Douglass (1.005-1.030) Urine Protein (Negative) Urine Glucose (UA) (Negative) mg/dL Urine Ketones (Negative) Urine Blood (Negative) Urine Nitrite (Negative) Urine Bilirubin (Negative) Urine Urobilinogen (0.2) mg/dL Ur Leukocyte Esterase (Negative) U Hyaline Cast (Auto) (0-2) /LPF Urine Microscopic RBC (0-5) /HPF Urine Microscopic WBC (0-5) /HPF Ur Epithelial Cells (None Seen) /HPF Urine Bacteria (None Seen) /HPF Urine Culture Reflexed (NO) - Progress Progress: improved, re-examined Progress Note: 02/20/25 10:12 My medical decision making and the assignment of moderate to high complexity of this patient's medical issue today is based on review of the patient's past medical history, reviewed patient's medication list, reviewed patient drug allergy list, history present illness and physical findings on examination. The workup in this patient includes controlling the patient's high blood pressure, CT scan of the head and CT scan of the cervical spine both without contrast, x- ray of the right knee, urinalysis, CBC, CMP, twelve-lead EKG. Differential diagnosis includes but is not limited to contusion right forehead, abrasion right forehead, acute intracranial abnormality, skull fracture, cervical spine fracture, cervical spine subluxation, right knee contusion, right knee fracture, right knee dislocation, urinary tract infection, dementia 02/20/25 12:25 I interpreted the patient's laboratory data results. Based on laboratory data results, there are no acute, emergent medical issues. I interpreted the preliminary x-ray report of the patient's knee. There is no evidence of any acute fracture or dislocation The radiologist interpreted the following radiographic studies: Left knee x-ray shows intact total knee arthroplasty. No other bony, articular or soft tissue abnormalities. CT scan of the head without contrast shows a new right frontal scalp hematoma otherwise continued nonacute senile brain. This was compared to prior study dated 04/09/2024. CT scan of the cervical spine without contrast shows stable osteopenia, multilevel degenerative spondylosis, minimal grade 1 C2 listhesis, lordotic reversal, bilateral carotid calcifications, no new/acute findings. 02/20/25 14:04 I had a long talk with the patient and the patient's daughter. The patient's daughter thinks that she is at her baseline neurologically. The daughter does mention that the patient, over the last year or so, has at times been confused. Since the workup was negative for anything acute or emergent, and the patient lives alone, the patient, the daughter and myself agree that we will place this patient in observation and this will give the family time to make arrangements for people to be at her home or her to be with people over the weekend. Next I spoke with telehospitalist Dr. Hansen. I reviewed the patient history, presenting complaint, physical findings on examination and workup results with her. She agrees to place her in observation and we will monitor her overnight and she will be reassessed and likely be discharged in the next 24 to 40 hours depending on patient's status and home arrangements. Counseled pt/family regarding: lab results, diagnosis, rad results Medical Desision Making - Independent Historian Additional History obtained from: Family, Retail Account Manager/EMT - Diagnostic Testing Diagnostic test were ordered, analyzed, and reviewed by me: Yes Radiological Interpretation: Reviewed by me, Teleradiologist Report - Risk of complications The pt has a high risk of morbidity or mortality based on: Decision regarding hospitilization or escalation of hosp level of care - Departure Departure Disposition: Observation Clinical Impression: Head injury, Fall, Confusion Condition: Stable Critical Care Time: No Referrals: TAMMY SCHNEIDER MD [Primary Care Provider, [facility]] - Follow up/PCP as directed
[2025-02-20] MEDS ORDERED: APRESOLINE 20 MG/ML INJ ONE ×2 (09:58→11:27)
[2025-02-20] MEDS: APRESOLINE 20 MG/ML INJ IV ONE ×2 (10:01→11:28)
[2025-02-20 10:07] LABS: BASOPHIL % 1.2 % (0.1-1.2); Basophil (Absolute #) 0.08 x10^3/uL (0.01-0.08); Eosinophil (Absolute #) 0.14 x10^3/uL (0.04-0.36); Hematocrit 38.4 % (34.1-44.9); Hemoglobin 12.6 g/dL (11.2-15.7); IMMATURE GRAN # 0.04 x10^3u/L (0.001-0.031); IMMATURE GRAN % 0.6 % (0.001-0.429); Lymphocyte (Absolute #) 1.13 x10^3/uL (1.18-3.74); Mean Corpuscular Hemoglobin 26.9 pg (25.6-32.2); Mean Corpuscular Hgb Concent. 32.8 g/dL (32.2-35.5); Monocyte (Absolute #) 0.72 x10^3/uL (0.24-0.86); NUCLEATED RBC # 0.00 x10^3u/L (0.00-0.012); NUCLEATED RBC % 0.0 % (0.00-0.2); Platelet Count 312 x10^3/uL (182-369); Red Blood Count 4.69 x10^6/uL (3.93-5.22); White Blood Count 6.5 x10^3/uL (3.98-10.04)
[2025-02-20 10:19] LABS: Calcium 9.2 mg/dL (8.4-10.2); Carbon Dioxide 26.0 mmol/L (22-30); Creatinine 1 0.73 mg/dL (0.52-1.04); EST GLOMERULAR FILTRATION RATE 80.5 ML/MIN; Glucose 104.0 mg/dL (74-106); Potassium 4.3 mmol/L (3.5-5.1); SGOT/AST 30.0 U/L (14-36); SGPT/ALT 16.0 U/L (0-35); Total Protein 7.7 g/dL (6.3-8.2)
--- NOTE | 2025-02-20 10:44 | XRAY ---
Indication: Status post fall. Comparison: None 3 view left knee demonstrates osteopenia and intact total knee arthroplasty. No other bony, articular, or soft tissue abnormalities.
[2025-02-20 11:03] LABS: Glucose, Urine Negative (Negative); Protein,Urine Dip Negative (Negative); RBC 0-2 /HPF (0-5); WBC 0-2 /HPF (0-5)
--- NOTE | 2025-02-20 11:34 | XRAY ---
Indication: Fall injury. Confusion. Multiple contiguous axial images obtained through the head without contrast. Comparison: April 09, 2024 Again age-appropriate global atrophy and moderate/advanced periventricular degenerative microischemia bilaterally. No acute intracranial hemorrhage, abnormal extra-axial fluid collection, or mass effect. 4th ventricle is midline. New small right frontal scalp hematoma. Bony calvarium intact. Visualized paranasal sinuses and mastoid air cells are clear. Impression: New right frontal scalp hematoma. Otherwise continued nonacute senile brain.
--- NOTE | 2025-02-20 11:45 | XRAY ---
Indication: Fall injury. Confusion. Multiple contiguous axial images obtained through the cervical spine. Sagittal and coronal reformatted images obtained. Comparison: February 08, 2024 Osseous structures remain demineralized. Axial images negative for acute fracture, suspicious bony lesions, or spinal canal stenosis. There remains mild/moderate multilevel degenerative disc osteophyte complex. Stable left C2-C3 degenerative facet arthropathy. Sagittal and coronal reformatted images again demonstrates lordotic reversal, positional versus paraspinal spasm. Stable grade 1 anteriolisthesis C2 on C3 and C2-C7 disc space narrowing. No acute compression fracture or jumped facet. Normal appearing craniocervical junction. Visualized noncontrasted soft tissues again demonstrates minimal bilateral carotid calcifications. Lung apices clear. Impression: Stable osteopenia, multilevel degenerative spondylosis, minimal grade 1 C2 listhesis, lordotic reversal, and bilateral carotid calcifications. No new/acute findings.
[2025-02-20] MEDS ORDERED: TYLENOL 325 MG ONE (12:23)
[2025-02-20] MEDS: TYLENOL 325 MG PO ONE (12:24)
[2025-02-20] MEDS ORDERED: TYLENOL 325 MG PO PRN (14:36)
--- NOTE | 2025-02-20 15:07 | PCM.HP ---
<SUSAN SLOAN - Last Filed: 02/20/25 15:12> History of Present Illness - Chief Complaint Chief Complaint: Fall injury Date: 02/20/25 History of Present Illness: is a 84 year old female with a past medical history significant for migraines, hypertension, cataracts, and osteoarthritis who presented to the emergency department on 02/20/25 after tripping on a curb while exiting a truck, striking her head and right knee. She was transported via EMS from her primary care office after being noted to be confused following the fall. There was no reported loss of consciousness, dizziness, chest pain, shortness of breath, or syncope. Her daughter reported to ED that patient has had intermittent confusion over the past year, possibly reflecting baseline cognitive decline. Patient is alert and orientated to self, president, place. She was able to provide me with her and answer questions appropriately. On examination, the patient exhibits a superficial abrasion over the bridge of the nose with mild surrounding erythema and no active bleeding. There is also periorbital ecchymosis of the right eye accompanied by a linear superficial abrasion over the right eyebrow and extending to the right temporal region. Endorses mild right eye and elbow pain. The affected areas show no laceration, swelling causing visual obstruction, or signs of infection. On presentation, vital signs revealed significant hypertension, initially 222/115 mmHg. The patient was afebrile, heart rate 83 bpm, and oxygen saturation 96% on room air. EKG demonstrated sinus rhythm with a prolonged MO interval, QTc 463 ms, and no acute ischemic changes. Laboratory evaluation revealed a mild hyponatremia (Na 134 ) with otherwise unremarkable CBC and CMP results. CT of the head showed a new right frontal scalp hematoma without skull fracture or intracranial hemorrhage, with chronic cortical atrophy and microvascular ischemic changes consistent with senile involution. CT cervical spine demonstrated osteopenia, multilevel degenerative spondylosis, minimal grade 1 C2 anterolisthesis, reversal of lordosis, and bilateral carotid artery calcifications, but no acute fracture. Right knee X-ray showed intact total knee arthroplasty with no fracture or effusion. Patient did report she has not taken any of her blood pressure medications today. Patient given 20mg of hydralazine in ED and BP now improved to 174/78 on arrival to [facility] Floor. The daughter confirmed that the patient lives alone, and the family expressed concern about safety at home given her progressive confusion. She will be admitted for overnight observation for neurologic monitoring, evaluation of mentation, and stabilization of blood pressure while the family coordinates supportive arrangements. - Review of Systems Constitutional: No Symptoms Eyes: Eye Pain (right eye), Other (a superficial abrasion over the bridge of the nose with mild surrounding erythema and no active bleeding. There is also periorbital ecchymosis of the right eye accompanied by a linear superficial abrasion over the right eyebrow and extending to the right temporal region.) Ears, Nose, & Throat: No Symptoms Respiratory: No Symptoms Cardiac: No Symptoms Abdominal/Gastrointestinal: No Symptoms Genitourinary Symptoms: No Symptoms Musculoskeletal: No Symptoms Skin: No Symptoms Neurological: No Symptoms Psychological: No Symptoms Endocrine: No Symptoms Hematologic/Lymphatic: No Symptoms Immunological/Allergic: No Symptoms Medications & Allergies Home Medications: Home Medication List Amlodipine Besylate 10 mg [Norvasc 10 MG] 5 mg PO BID 08/16/12 [History Confirmed 02/20/25] Aspirin EC 81 mg [Ecotrin 81 mg] 81 mg PO DAILY 08/16/12 [History Confirmed 02/20/25] Hydrocodone/Acetaminophen [Hydrocodone-Acetamin 10-325 mg] 1 tab PO TID 01/22/20 [History Confirmed 02/20/25] Mirtazapine 15 mg PO DAILY 01/22/20 [History Confirmed 02/20/25] Temazepam 15 mg [Restoril 15 MG] 15 mg PO HS 01/22/20 [History Confirmed 02/20/25] Gabapentin [Neurontin ] 300 mg PO QID 01/25/23 [History Confirmed 02/20/25] Hydralazine HCl 100 mg PO BID 01/25/23 [History Confirmed 02/20/25] Hydrocodone/Acetaminophen [Hydrocodone-Acetamin 5-325 mg] 1 tab PO Q6HPRN PRN #8 tablet MDD 4 01/25/23 [Rx Confirmed 02/20/25] Losartan Potassium 100 mg PO DAILY 01/25/23 [History Confirmed 02/20/25] hydrOXYzine HCL [Hydroxyzine HCl] 50 mg PO BID 01/25/23 [History Confirmed 02/20/25] Metoprolol Succinate 50 mg [Toprol Xl 50 MG] 50 mg PO QAM 02/20/25 [History Confirmed 02/20/25] Allergies/Adverse Reactions: Allergies Allergy/AdvReac Type Severity Reaction Status Date / Time cephalexin monohydrate Allergy Severe Verified 02/20/25 09:29 [From Keflex] erythromycin base Allergy Severe Verified 02/20/25 09:29 [Erythromycin Base] azithromycin Allergy Verified 02/20/25 09:29 strawberry Allergy Verified 02/20/25 09:29 - Past Medical History Past Medical History: Yes Neurological History: Migraines ENT History: Cataracts Cardiac History: Hypertension Respiratory History: No Pertinent History Endocrine Medical History: No Pertinent History Musculoskelatal History: Osteoarthritis, Osteoporosis, Other GI Medical History: No Pertinent History History: No Pertinent History Pyscho-Social History: Depression Reproductive Disorders: No Pertinent History Comment: DAUGHTER PRESENT - STATES HX OF OSTEOPOROSIS/PENIA BUT PATIENT DIDN'T REMEMBER. DAUGHTER ALSO STATES SCOLIOSIS. SX HX: LEFT ROTATOR CUFF REPAIRS, SHANE ATERAL TOTAL KNEE REPLACEMENTS MOST RECENT WAS LEFT BUT > 10 YEARS AGO. - Past Surgical History Past Surgical History: Yes Neuro Surgical History: No Pertinent History Cardiac History: No Pertinent History Respiratory Surgery: No Pertinent History GI Surgical History: No Pertinent History Genitourinary Surgical Hx: No Pertinent History Musculskeletal Surgical Hx: Orthopedic Surgery, Other Female Surgical History: Lumpectomy, Tubal Ligation Other Surgical History: EGD,shane rotator cuff ,Left knee replacement,shane feet spurs,,right breast lumpectomy(benign),shane hallux nail evulsion,shane cataract removal with lens implant,Tubal Lig. , childbirth x three Significant Family History: heart disease, cancer, hypertension - Social History Smoking Status: Never smoker Exposure to second hand smoke: No Alcohol: None Drug Use: none - Social Determinants of Health Will the patient participate in the screening: Declined to provide - Physical Exam Vital Signs: Vital Signs - 24 hr Temp Pulse Resp BP BP Pulse Ox 02/20/25 14:36 98.3 F 122 H 18 174/78 96 02/20/25 14:01 116 H 26 H 198/105 98 02/20/25 13:50 148 H 165/86 91 L 02/20/25 13:40 128 H 17 166/69 98 02/20/25 13:30 109 H 18 154/66 96 02/20/25 13:20 105 H 16 159/68 96 02/20/25 13:10 106 H 18 135/71 02/20/25 13:00 100 H 15 160/78 97 02/20/25 12:51 100 H 12 166/56 02/20/25 12:40 111 H 25 H 157/74 02/20/25 12:31 104 H 15 154/73 02/20/25 12:20 108 H 14 153/57 02/20/25 12:11 109 H 14 164/51 02/20/25 11:52 103 H 22 183/79 02/20/25 11:40 105 H 18 138/92 94 L 02/20/25 11:31 96 H 14 205/91 96 02/20/25 11:21 98 H 13 202/100 97 02/20/25 11:11 96 H 19 192/80 97 02/20/25 11:01 97 H 17 203/97 95 02/20/25 10:41 95 H 17 164/112 96 02/20/25 09:55 95 02/20/25 09:30 97.9 F 85 17 222/115 95 General Appearance: no apparent distress Neurologic Exam: alert, cooperative, other (Alert to self, place, president) Eye Exam: PERRL/EOMI Ears, Nose, Throat Exam: normal ENT inspection Neck Exam: normal inspection Respiratory Exam: normal breath sounds, lungs clear Cardiovascular Exam: tachycardia Gastrointestinal/Abdomen Exam: soft, normal bowel sounds Pelvic Exam: not done Rectal Exam: deferred Back Exam: normal inspection Extremity Exam: normal inspection Skin Exam: abrasion (a superficial abrasion over the bridge of the nose with mild surrounding erythema and no active bleeding. There is also periorbital ecchymosis of the right eye (black eye) accompanied by a linear superficial abrasion over the right eyebrow and extending to the right temporal region.), ecchymosis, other Results - Labs Lab/Micro Results: Lab Results-Last 24 Hours 02/20/25 02/20/25 02/20/25 Range/Units 09:55 09:55 09:56 WBC 6.5 (3.98-10.04) x10^3/uL RBC 4.69 (3.93-5.22) x10^6/uL Hgb 12.6 (11.2-15.7) g/dL Hct 38.4 (34.1-44.9) % MCV 81.9 (79.4-94.8) fL MCH 26.9 (25.6-32.2) pg MCHC 32.8 (32.2-35.5) g/dL RDW 13.3 (11.7-14.4) % Plt Count 312 (182-369) x10^3/uL MPV 9.6 (9.4-12.3) fL Gran % 67.8 (34.0-71.1) % Immature Gran % (Auto) 0.6 H (0.001-0.429) % Nucleat RBC Rel Count 0.0 (0.00-0.2) % Eos # (Auto) 0.14 (0.04-0.36) x10^3/uL Immature Gran # (Auto) 0.04 H (0.001-0.031) x10^3u/L Absolute Lymphs (auto) 1.13 L (1.18-3.74) x10^3/uL Absolute Monos (auto) 0.72 (0.24-0.86) x10^3/uL Absolute Nucleated RBC 0.00 (0.00-0.012) x10^3u/L Lymphocytes % 17.3 L (19.3-51.7) % Monocytes % 11.0 (4.7-12.5) % Eosinophils % 2.1 (0.7-5.8) % Basophils % 1.2 (0.1-1.2) % Absolute Granulocytes 4.41 (1.56-6.13) x10^3/uL Basophils # 0.08 (0.01-0.08) x10^3/uL Sodium 134 L (135-145) mmol/L Potassium 4.3 (3.5-5.1) mmol/L Chloride 102 (98-107) mmol/L Carbon Dioxide 26 (22-30) mmol/L Anion Gap 10.6 (5-15) MEQ/L BUN 14 (7-17) mg/dL Creatinine 0.73 (0.52-1.04) mg/dL Estimated GFR 80.5 ML/MIN Glucose 104 (74-106) mg/dL POC Glucometer 101 (74 to 106) mg/dL Calcium 9.2 (8.4-10.2) mg/dL Total Bilirubin 1.20 (0.2-1.3) mg/dL AST 30 (14-36) U/L ALT 16 (0-35) U/L Alkaline Phosphatase 86 (38-126) U/L Serum Total Protein 7.7 (6.3-8.2) g/dL Albumin 4.5 (3.5-5.0) g/dL Urine Color (Yellow) Urine Appearance (Clear) Urine pH (4.6-8.0) Ur Specific [place] (1.005-1.030) Urine Protein (Negative) Urine Glucose (UA) (Negative) mg/dL Urine Ketones (Negative) Urine Blood (Negative) Urine Nitrite (Negative) Urine Bilirubin (Negative) Urine Urobilinogen (0.2) mg/dL Ur Leukocyte Esterase (Negative) U Hyaline Cast (Auto) (0-2) /LPF Urine Microscopic RBC (0-5) /HPF Urine Microscopic WBC (0-5) /HPF Ur Epithelial Cells (None Seen) /HPF Urine Bacteria (None Seen) /HPF Urine Culture Reflexed (NO) 02/20/25 Range/Units 10:11 WBC (3.98-10.04) x10^3/uL RBC (3.93-5.22) x10^6/uL Hgb (11.2-15.7) g/dL Hct (34.1-44.9) % MCV (79.4-94.8) fL MCH (25.6-32.2) pg MCHC (32.2-35.5) g/dL RDW (11.7-14.4) % Plt Count (182-369) x10^3/uL MPV (9.4-12.3) fL Gran % (34.0-71.1) % Immature Gran % (Auto) (0.001-0.429) % Nucleat RBC Rel Count (0.00-0.2) % Eos # (Auto) (0.04-0.36) x10^3/uL Immature Gran # (Auto) (0.001-0.031) x10^3u/L Absolute Lymphs (auto) (1.18-3.74) x10^3/uL Absolute Monos (auto) (0.24-0.86) x10^3/uL Absolute Nucleated RBC (0.00-0.012) x10^3u/L Lymphocytes % (19.3-51.7) % Monocytes % (4.7-12.5) % Eosinophils % (0.7-5.8) % Basophils % (0.1-1.2) % Absolute Granulocytes (1.56-6.13) x10^3/uL Basophils # (0.01-0.08) x10^3/uL Sodium (135-145) mmol/L Potassium (3.5-5.1) mmol/L Chloride (98-107) mmol/L Carbon Dioxide (22-30) mmol/L Anion Gap (5-15) MEQ/L BUN (7-17) mg/dL Creatinine (0.52-1.04) mg/dL Estimated GFR ML/MIN Glucose (74-106) mg/dL POC Glucometer (74 to 106) mg/dL Calcium (8.4-10.2) mg/dL Total Bilirubin (0.2-1.3) mg/dL AST (14-36) U/L ALT (0-35) U/L Alkaline Phosphatase (38-126) U/L Serum Total Protein (6.3-8.2) g/dL Albumin (3.5-5.0) g/dL Urine Color Yellow (Yellow) Urine Appearance Clear (Clear) Urine pH 7.0 (4.6-8.0) Ur Specific [place] <=1.005 (1.005-1.030) Urine Protein Negative (Negative) Urine Glucose (UA) Negative (Negative) mg/dL Urine Ketones Negative (Negative) Urine Blood Negative (Negative) Urine Nitrite Negative (Negative) Urine Bilirubin Negative (Negative) Urine Urobilinogen 0.2 (0.2) mg/dL Ur Leukocyte Esterase Negative (Negative) U Hyaline Cast (Auto) NONE SEEN (0-2) /LPF Urine Microscopic RBC 0-2 (0-5) /HPF Urine Microscopic WBC 0-2 (0-5) /HPF Ur Epithelial Cells None Seen (None Seen) /HPF Urine Bacteria Few A (None Seen) /HPF Urine Culture Reflexed ORDERED SEPARATELY (NO) Accuchecks Date 02/20/25 Time 09:57 - Radiology Impressions Radiology Exams & Impressions: Radiology Procedures Category Date Time Status CERVICAL SPINE WO CONTRAST [CT] Stat Exams 02/20/25 09:48 Completed HEAD WITHOUT CONTRAST [CT] Stat Exams 02/20/25 10:19 Completed KNEE (3 VIEWS) Stat Exams 02/20/25 10:30 Completed Assessment/Plan (1) Hypertensive urgency Current Visit: Yes Status: Acute Assessment & Plan: -Severe hypertension likely triggered by pain and stress after the fall. Responsive to 20mg IV hydralazine dose. -EKG and CT head unremarkable -Monitor BP q4h and ensure gradual reduction to avoid hypotension. -Continue home antihypertensive regimen once reconciled. -If BP >180 systolic, may repeat PRN IV hydralazine -Evaluate for nonadherence or need for regimen adjustment prior to discharge. -Encourage low-sodium diet and family-assisted medication compliance. Code(s): I16.0 - HYPERTENSIVE URGENCY (2) Accident due to mechanical fall without injury Current Visit: Yes Status: Acute Assessment & Plan: -CT head showing a right frontal scalp hematoma without intracranial hemorrhage or fracture, with chronic cortical atrophy and small vessel ischemic changes consistent with senile involution. -CT cervical spine demonstrated osteopenia, multilevel spondylosis, mild grade 1 C2 anterolisthesis, and bilateral carotid calcifications, with no acute fracture or malalignment. -Right knee X-ray showed intact total knee arthroplasty hardware, osteopenia, and no acute osseous injury. -Physical exam notable for superficial abrasions over the nasal bridge, right eyebrow, and pentecostalism, with right periorbital ecchymosis consistent with soft tissue trauma. -Observation overnight with neuro checks q4h. -Clean abrasions with mild antiseptic solution; apply topical antibiotic ointment twice daily. -Pain control with acetaminophen as needed. -PT/OT evaluation for fall risk and mobility. -Fall precautions in place. Code(s): W19.XXXA - UNSPECIFIED FALL, INITIAL ENCOUNTER (3) Head injury Current Visit: Yes Status: Acute Assessment & Plan: see above Code(s): S09.90XA - UNSPECIFIED INJURY OF HEAD, INITIAL ENCOUNTER (4) Hyponatremia Current Visit: Yes Status: Acute Assessment & Plan: -mild at 134- trend -Monitor electrolytes; avoid hypotonic IV fluids. -Encourage oral intake and assess for contributing medications (e.g., thiazides). Code(s): E87.1 - HYPO-OSMOLALITY AND HYPONATREMIA (5) Osteoarthritis Current Visit: Yes Status: Acute Assessment & Plan: -continue home meds Code(s): M19.90 - UNSPECIFIED OSTEOARTHRITIS, UNSPECIFIED SITE (6) HTN (hypertension) Current Visit: Yes Status: Acute Assessment & Plan: -see hypertensive urgency Code(s): I10 - ESSENTIAL (PRIMARY) HYPERTENSION (7) Migraines Current Visit: Yes Status: Acute Assessment & Plan: -continue home meds Code(s): G43.909 - MIGRAINE, UNSP, NOT INTRACTABLE, WITHOUT STATUS MIGRAINOSUS (8) Confusion Current Visit: Yes Status: Acute Assessment & Plan: -Patients intermittent confusion pre-dates the fall, suggesting early dementia; however, acute hypertensive stress and mild hyponatremia (Na 134) may have contributed. -CT findings show chronic cortical atrophy and microvascular changes. -Monitor mental status and reorient as needed. -Repeat CMP in the morning to trend sodium and renal function. -Avoid sedatives, narcotics, and anticholinergics. -Outpatient cognitive evaluation recommended post-discharge VTE: SCD PPI: Protonix Dispo: 1-2 days Code Status: Full code Plan of care time spent > 45 mins Code(s): R41.0 - DISORIENTATION, UNSPECIFIED Telemedicine Encounter - Telemedicine Encounter Telemedicine Encounter: "The entirety of this encounter was performed via Telemedicine" This visit was performed using real-time audio and video connection between my location and thepatients locationwith the assistance of a surrogateat the patients location. Written or verbal consent was obtained from the patient/guardian to perform this visit usingsynchronoustelemedicine technology. Any patient questions regarding the telemedicine interaction were answered. <TING SARAVIA - Last Filed: 02/21/25 10:34> History of Present Illness - Chief Complaint History of Present Illness: is a 84 year old female. - Physical Exam Vital Signs: Vital Signs - 24 hr Temp Pulse Resp BP BP Pulse Ox 02/21/25 07:10 98.7 F 80 18 180/84 95 02/21/25 04:00 98.9 F 78 18 153/69 95 02/20/25 19:29 99.0 F 85 19 145/66 95 02/20/25 16:22 98.4 F 112 H 16 169/70 96 02/20/25 15:33 98.3 F 122 H 18 174/78 96 02/20/25 15:09 98.3 F 122 H 18 174/78 96 02/20/25 14:36 98.3 F 122 H 18 174/78 96 02/20/25 14:01 116 H 26 H 198/105 98 02/20/25 13:50 148 H 165/86 91 L 02/20/25 13:40 128 H 17 166/69 98 02/20/25 13:30 109 H 18 154/66 96 02/20/25 13:20 105 H 16 159/68 96 02/20/25 13:10 106 H 18 135/71 02/20/25 13:00 100 H 15 160/78 97 02/20/25 12:51 100 H 12 166/56 02/20/25 12:40 111 H 25 H 157/74 02/20/25 12:31 104 H 15 154/73 02/20/25 12:20 108 H 14 153/57 02/20/25 12:11 109 H 14 164/51 02/20/25 11:52 103 H 22 183/79 02/20/25 11:40 105 H 18 138/92 94 L 02/20/25 11:31 96 H 14 205/91 96 02/20/25 11:21 98 H 13 202/100 97 02/20/25 11:11 96 H 19 192/80 97 02/20/25 11:01 97 H 17 203/97 95 02/20/25 10:41 95 H 17 164/112 96 Results - Labs Lab/Micro Results: Lab Results-Last 24 Hours 02/20/25 02/21/25 02/21/25 Range/Units 10:11 05:17 05:17 WBC 6.9 (3.98-10.04) x10^3/uL RBC 4.43 (3.93-5.22) x10^6/uL Hgb 12.0 (11.2-15.7) g/dL Hct 37.2 (34.1-44.9) % MCV 84.0 (79.4-94.8) fL MCH 27.1 (25.6-32.2) pg MCHC 32.3 (32.2-35.5) g/dL RDW 13.8 (11.7-14.4) % Plt Count 295 (182-369) x10^3/uL MPV 10.0 (9.4-12.3) fL Gran % 72.9 H (34.0-71.1) % Immature Gran % (Auto) 0.3 (0.001-0.429) % Nucleat RBC Rel Count 0.0 (0.00-0.2) % Eos # (Auto) 0.11 (0.04-0.36) x10^3/uL Immature Gran # (Auto) 0.02 (0.001-0.031) x10^3u/L Absolute Lymphs (auto) 0.78 L (1.18-3.74) x10^3/uL Absolute Monos (auto) 0.90 H (0.24-0.86) x10^3/uL Absolute Nucleated RBC 0.00 (0.00-0.012) x10^3u/L Lymphocytes % 11.3 L (19.3-51.7) % Monocytes % 13.0 H (4.7-12.5) % Eosinophils % 1.6 (0.7-5.8) % Basophils % 0.9 (0.1-1.2) % Absolute Granulocytes 5.05 (1.56-6.13) x10^3/uL Basophils # 0.06 (0.01-0.08) x10^3/uL Sodium 136 (135-145) mmol/L Potassium 3.6 (3.5-5.1) mmol/L Chloride 104 (98-107) mmol/L Carbon Dioxide 25 (22-30) mmol/L Anion Gap 11.0 (5-15) MEQ/L BUN 12 (7-17) mg/dL Creatinine 0.73 (0.52-1.04) mg/dL Estimated GFR 80.5 ML/MIN Glucose 91 (74-106) mg/dL Calcium 9.0 (8.4-10.2) mg/dL Total Bilirubin 1.10 (0.2-1.3) mg/dL AST 21 (14-36) U/L ALT 13 (0-35) U/L Alkaline Phosphatase 75 (38-126) U/L Serum Total Protein 6.7 (6.3-8.2) g/dL Albumin 3.8 (3.5-5.0) g/dL Urine Color Yellow (Yellow) Urine Appearance Clear (Clear) Urine pH 7.0 (4.6-8.0) Ur Specific [place] <=1.005 (1.005-1.030) Urine Protein Negative (Negative) Urine Glucose (UA) Negative (Negative) mg/dL Urine Ketones Negative (Negative) Urine Blood Negative (Negative) Urine Nitrite Negative (Negative) Urine Bilirubin Negative (Negative) Urine Urobilinogen 0.2 (0.2) mg/dL Ur Leukocyte Esterase Negative (Negative) U Hyaline Cast (Auto) NONE SEEN (0-2) /LPF Urine Microscopic RBC 0-2 (0-5) /HPF Urine Microscopic WBC 0-2 (0-5) /HPF Ur Epithelial Cells None Seen (None Seen) /HPF Urine Bacteria Few A (None Seen) /HPF Urine Culture Reflexed ORDERED SEPARATELY (NO) - Radiology Impressions Radiology Exams & Impressions: Radiology Procedures Category Date Time Status CERVICAL SPINE WO CONTRAST [CT] Stat Exams 02/20/25 09:48 Completed HEAD WITHOUT CONTRAST [CT] Stat Exams 02/20/25 10:19 Completed KNEE (3 VIEWS) Stat Exams 02/20/25 10:30 Completed - Other Procedures and Tests Respiratory Therapy 02/20/25 15:25 EKG PRN Telemedicine Encounter - Telemedicine Encounter Telemedicine Encounter: "The entirety of this encounter was performed via Telemedicine" This visit was performed using real-time audio and video connection between my location and thepatients locationwith the assistance of a surrogateat the patients location. Written or verbal consent was obtained from the patient/guardian to perform this visit using[employer]Live[employer]BioWizardcine technology. Any patient questions regarding the telemedicine interaction were answered. DESTINY Encounter - DESTINY Encounter Attestation DESTINY Encounter Attestation: "IhrichardeenandMaykelGEOVANNA ELI on 02/20/2025 andhavediscussed pertinent aspects of their care with Susan Hobson agree with the history, physical exam (any modifications based on my personal exam will be noted below), assessment, and plan as outlined in original note. Please see immediately below for my summary of findings and additional assessment and plan along with any meaningful corrections/explanations to the Subjective/Objective portions of the DESTINY note will be noted." My portion of the encounter took place via telemedicine. -Patient admitted with confusion after a fall, along with a right frontal scalp hematoma. At the time of my interview patient had some confusion about date but otherwise was oriented and answering questions appropriately. Family had concerns about her being on her own as she lives by herself. Admitted for observation but she should be able to go home the next day with family support.
[2025-02-20] MEDS ORDERED: Zofran 4 MG/2 ML VIAL IV PRN (15:25)
[2025-02-20] MEDS: Toprol Xl 50 MG PO SCH (16:32)
[2025-02-20] MEDS: Cozaar 50 MG PO SCH (16:32)
[2025-02-20] MEDS: ECOTRIN 81 MG PO SCH (16:32)
[2025-02-20] MEDS: NEURONTIN PO SCH (16:32)
[2025-02-20] MEDS: Protonix 40MG Tablet PO SCH (16:32)
[2025-02-20] MEDS: REMERON 30 MG PO SCH (16:35)
[2025-02-20 19:31] VITALS: O2SAT 95
[2025-02-20] MEDS: ATARAX 25 MG PO SCH (21:55)
[2025-02-20] MEDS: Restoril 15 MG PO SCH (21:55)
[2025-02-20] MEDS: NORVASC 5 MG PO SCH (21:55)
[2025-02-20] MEDS: Apresoline 25 MG TABLET PO SCH (21:56)
[2025-02-21 04:40] VITALS: RESP 18
[2025-02-21] MEDS: NORCO 5/325 MG PO PRN (06:19)
[2025-02-21 06:37] LABS: BASOPHIL % 0.9 % (0.1-1.2); Basophil (Absolute #) 0.06 x10^3/uL (0.01-0.08); Eosinophil (Absolute #) 0.11 x10^3/uL (0.04-0.36); Hematocrit 37.2 % (34.1-44.9); Hemoglobin 12.0 g/dL (11.2-15.7); IMMATURE GRAN # 0.02 x10^3u/L (0.001-0.031); IMMATURE GRAN % 0.3 % (0.001-0.429); Lymphocyte (Absolute #) 0.78 x10^3/uL (1.18-3.74); Mean Corpuscular Hemoglobin 27.1 pg (25.6-32.2); Mean Corpuscular Hgb Concent. 32.3 g/dL (32.2-35.5); Monocyte (Absolute #) 0.90 x10^3/uL (0.24-0.86); NUCLEATED RBC # 0.00 x10^3u/L (0.00-0.012); NUCLEATED RBC % 0.0 % (0.00-0.2); Platelet Count 295 x10^3/uL (182-369); Red Blood Count 4.43 x10^6/uL (3.93-5.22); White Blood Count 6.9 x10^3/uL (3.98-10.04)
[2025-02-21 07:08] LABS: Calcium 9.0 mg/dL (8.4-10.2); Carbon Dioxide 25.0 mmol/L (22-30); Creatinine 1 0.73 mg/dL (0.52-1.04); EST GLOMERULAR FILTRATION RATE 80.5 ML/MIN; Glucose 91.0 mg/dL (74-106); Potassium 3.6 mmol/L (3.5-5.1); SGOT/AST 21.0 U/L (14-36); SGPT/ALT 13.0 U/L (0-35); Total Protein 6.7 g/dL (6.3-8.2)
[2025-02-21 07:11] VITALS: PULSE 80; TEMP 98.7
[2025-02-21 10:51] VITALS: BP 132/61
--- NOTE | 2025-02-21 11:22 | PCM.DS ---
Discharge Summary Date of Admission: 02/20/25 14:31 Date of Discharge: 02/21/25 Admitting Physician: TING SARAVIA MD Primary Care Provider: TAMMY SCHNEIDER JACQUELINE Allergies Allergies cephalexin monohydrate [From Keflex] Allergy (Severe, Verified 02/20/25 09:29) erythromycin base [Erythromycin Base] Allergy (Severe, Verified 02/20/25 09:29) azithromycin Allergy (Verified 02/20/25 09:29) strawberry Allergy (Verified 02/20/25 09:29) Hospital Summary - Hospital Course Hospital Course: Ms. DIEZ is an 84-year-old female with a history of hypertension, migraines, cataracts, and osteoarthritis who presented to the emergency department on 02/20/25 after tripping on a curb while exiting a truck, striking her head and right knee. She was initially evaluated at her primary care office where confusion was noted, prompting EMS transport for further evaluation. Her daughter reported intermittent confusion over the past year, raising suspicion for baseline cognitive decline. The patient denied loss of consciousness, dizziness, chest pain, shortness of breath, or syncope. On arrival, she was alert and oriented to self, president, and place, though mildly disoriented to time. Physical examination revealed a superficial abrasion over the bridge of the nose with mild erythema and right periorbital ecchymosis extending to the right temporal region. No lacerations or swelling causing visual obstruction were present. She endorsed mild right eye and elbow pain without focal neurologic deficits. Initial vital signs revealed severe hypertension with a blood pressure of 222/115 mm Hg, heart rate 83 bpm, afebrile, and oxygen saturation 96% on room air. EKG showed sinus rhythm with a prolonged DC interval, QTc 463 ms, and no ischemic changes. Laboratory evaluation demonstrated mild hyponatremia (Na 134 mmol/L) with otherwise unremarkable CBC and CMP. CT head revealed a right frontal scalp hematoma without skull fracture or intracranial hemorrhage, chronic cortical atrophy, and microvascular ischemic changes consistent with senile involution. CT cervical spine demonstrated osteopenia, multilevel degenerative spondylosis, mild grade 1 C2 anterolisthesis, and bilateral carotid artery calcifications without acute fracture. Right knee X-ray showed intact total knee arthroplasty with osteopenia and no acute osseous injury. The patient received 20 mg IV hydralazine in the ED, with subsequent improvement of BP to 174/78 mm Hg on transfer to the medical-surgical unit. She was admitted for observation, blood pressure stabilization, and neurologic monitoring. During admission, her mental status remained at baseline and she ambulated safely with a walker. Repeat vitals demonstrated improved blood pressure control at 132/61 mm Hg on home regimen. Electrolytes remained stable on repeat CMP. Discharge Note New Diagnosis: Fall/hypertensive urgency New Medications: none Follow Up: PCP I spent 35 minutes [id number] with the patient on the day of discharge performing discharge exam, discussing hospital stay and discharge instructions with patient and caregivers, preparation of discharge records, prescriptions & referral forms and addressing any questions/concerns the patient had as documented above. - Vitals & Intake/Output Vital Signs: Vital Signs Temperature 98.7 F 02/21/25 07:10 Pulse Rate 80 02/21/25 10:50 Respiratory Rate 18 02/21/25 10:50 Blood Pressure 132/61 02/21/25 10:50 O2 Sat by Pulse Oximetry 95 02/21/25 07:10 Intake & Output: Intake & Output 02/18/25 02/19/25 02/20/25 02/21/25 11:59 11:59 11:59 11:59 Intake Total 1360 Balance 1360 Weight 77.9 kg 72.9 kg - Lab Result Diagrams: 02/21/25 05:17 02/21/25 05:17 Lab Results-Last 24 Hrs: Lab Results-Last 24 Hours 02/20/25 02/21/25 02/21/25 Range/Units 10:11 05:17 05:17 WBC 6.9 (3.98-10.04) x10^3/uL RBC 4.43 (3.93-5.22) x10^6/uL Hgb 12.0 (11.2-15.7) g/dL Hct 37.2 (34.1-44.9) % MCV 84.0 (79.4-94.8) fL MCH 27.1 (25.6-32.2) pg MCHC 32.3 (32.2-35.5) g/dL RDW 13.8 (11.7-14.4) % Plt Count 295 (182-369) x10^3/uL MPV 10.0 (9.4-12.3) fL Gran % 72.9 H (34.0-71.1) % Immature Gran % (Auto) 0.3 (0.001-0.429) % Nucleat RBC Rel Count 0.0 (0.00-0.2) % Eos # (Auto) 0.11 (0.04-0.36) x10^3/uL Immature Gran # (Auto) 0.02 (0.001-0.031) x10^3u/L Absolute Lymphs (auto) 0.78 L (1.18-3.74) x10^3/uL Absolute Monos (auto) 0.90 H (0.24-0.86) x10^3/uL Absolute Nucleated RBC 0.00 (0.00-0.012) x10^3u/L Lymphocytes % 11.3 L (19.3-51.7) % Monocytes % 13.0 H (4.7-12.5) % Eosinophils % 1.6 (0.7-5.8) % Basophils % 0.9 (0.1-1.2) % Absolute Granulocytes 5.05 (1.56-6.13) x10^3/uL Basophils # 0.06 (0.01-0.08) x10^3/uL Sodium 136 (135-145) mmol/L Potassium 3.6 (3.5-5.1) mmol/L Chloride 104 (98-107) mmol/L Carbon Dioxide 25 (22-30) mmol/L Anion Gap 11.0 (5-15) MEQ/L BUN 12 (7-17) mg/dL Creatinine 0.73 (0.52-1.04) mg/dL Estimated GFR 80.5 ML/MIN Glucose 91 (74-106) mg/dL Calcium 9.0 (8.4-10.2) mg/dL Total Bilirubin 1.10 (0.2-1.3) mg/dL AST 21 (14-36) U/L ALT 13 (0-35) U/L Alkaline Phosphatase 75 (38-126) U/L Serum Total Protein 6.7 (6.3-8.2) g/dL Albumin 3.8 (3.5-5.0) g/dL Urine Color Yellow (Yellow) Urine Appearance Clear (Clear) Urine pH 7.0 (4.6-8.0) Ur Specific [place] <=1.005 (1.005-1.030) Urine Protein Negative (Negative) Urine Glucose (UA) Negative (Negative) mg/dL Urine Ketones Negative (Negative) Urine Blood Negative (Negative) Urine Nitrite Negative (Negative) Urine Bilirubin Negative (Negative) Urine Urobilinogen 0.2 (0.2) mg/dL Ur Leukocyte Esterase Negative (Negative) U Hyaline Cast (Auto) NONE SEEN (0-2) /LPF Urine Microscopic RBC 0-2 (0-5) /HPF Urine Microscopic WBC 0-2 (0-5) /HPF Ur Epithelial Cells None Seen (None Seen) /HPF Urine Bacteria Few A (None Seen) /HPF Urine Culture Reflexed ORDERED SEPARATELY (NO) Micro Results-Entire Visit: Microbiology 02/20/25 10:11 Urine Culture - Preliminary Catherized NO GROWTH TO DATE - Radiology Exams Ordered Rad Exams-Entire Visit: Radiology Procedures Category Date Time Status CERVICAL SPINE WO CONTRAST [CT] Stat Exams 02/20/25 09:48 Completed HEAD WITHOUT CONTRAST [CT] Stat Exams 02/20/25 10:19 Completed KNEE (3 VIEWS) Stat Exams 02/20/25 10:30 Completed - Procedures and Test Procedures and Tests throughout Hospitalization: Therapy Orders & Screens 02/20/25 15:24 PT Eval & Treat (MD Order) ONCE Reason for Eval:: fall Diagnosis: Fall injury OT Eval and Treat (MD Order) ONCE Comment: Physician Instructions: Reason For Exam: Diagnosis: Fall injury 02/20/25 15:25 EKG PRN Comment: Diagnosis: Fall injury Discharge Exam General Appearance: no apparent distress Neurologic Exam: alert, cooperative, other (at baseline orientation to self/place/president - unknown year) Eye Exam: PERRL, other (a superficial abrasion over the bridge of the nose with mild surrounding erythema and no active bleeding. There is also periorbital ecchymosis of the right eye accompanied by a linear superficial abrasion over the right eyebrow and extending to the right temporal region) Ears, Nose, Throat Exam: normal ENT inspection Neck Exam: normal inspection Respiratory Exam: normal breath sounds, lungs clear Cardiovascular Exam: regular rate/rhythm, normal heart sounds Gastrointestinal/Abdomen Exam: soft, normal bowel sounds Pelvic Exam: deferred Rectal Exam: deferred Back Exam: normal inspection Extremity Exam: normal inspection Skin Exam: normal color Final Diagnosis/Problem List - Final Discharge Diagnosis/Problem (1) Hypertensive urgency Current Visit: Yes Status: Acute Assessment & Plan: Severe hypertension on presentation likely secondary to stress and pain after fall. Responded appropriately to 20 mg IV hydralazine. EKG and CT head showed no acute changes. Continue home antihypertensive regimen; ensure compliance through family supervision. Repeat BP checks twice daily at home with goal <140/90 mm Hg. Maintain low-sodium diet. Follow up with PCP within one week for medication reconciliation and long-term management. Code(s): I16.0 - HYPERTENSIVE URGENCY (2) Accident due to mechanical fall without injury Current Visit: Yes Status: Acute Assessment & Plan: CT head negative for acute bleed; right frontal scalp hematoma only. No cervical or knee fractures on imaging. Observation completed with stable neuro exams. Apply topical antibiotic ointment twice daily to facial abrasions until healed. Use acetaminophen for pain. Maintain fall precautions at home; daughter to supervise mobility and arrange for home safety assessment. PT/OT to follow as outpatient if recurrent imbalance noted. Code(s): W19.XXXA - UNSPECIFIED FALL, INITIAL ENCOUNTER (3) Head injury Current Visit: Yes Status: Acute Assessment & Plan: see above Code(s): S09.90XA - UNSPECIFIED INJURY OF HEAD, INITIAL ENCOUNTER (4) Hyponatremia Current Visit: Yes Status: Acute Assessment & Plan: Encourage oral hydration and adequate dietary sodium. Avoid hypotonic fluids. Review diuretic use with PCP. Code(s): E87.1 - HYPO-OSMOLALITY AND HYPONATREMIA (5) Osteoarthritis Current Visit: Yes Status: Acute Assessment & Plan: Continue home analgesics and supportive measures. Encourage activity within comfort limits using walker. Code(s): M19.90 - UNSPECIFIED OSTEOARTHRITIS, UNSPECIFIED SITE (6) HTN (hypertension) Current Visit: Yes Status: Acute Assessment & Plan: Continue home antihypertensives as directed. Reinforce adherence, medication refill planning, and blood pressure self-monitoring. Code(s): I10 - ESSENTIAL (PRIMARY) HYPERTENSION (7) Migraines Current Visit: Yes Status: Acute Assessment & Plan: Continue home preventive regimen and abortive therapy as needed. Follow up with primary care or neurology for management optimization. Code(s): G43.909 - MIGRAINE, UNSP, NOT INTRACTABLE, WITHOUT STATUS MIGRAINOSUS (8) Confusion Current Visit: Yes Status: Acute Assessment & Plan: Outpatient cognitive evaluation and formal memory assessment recommended. Family to monitor for worsening confusion or unsafe behaviors. Avoid sedatives, narcotics, and anticholinergics. At baseline per daughter Disposition: Discharged home in stable condition with her daughter. Ambulating independently with walker, alert and cooperative, and hemodynamically stable. Follow-Up: Primary care provider within one week for blood pressure management, cognitive evaluation referral, and medication review. Consider neurology referral for cognitive decline and migraine management if symptoms progress. Condition on Discharge: Improved and stable. No new deficits noted. Code(s): R41.0 - DISORIENTATION, UNSPECIFIED - Discharge Discharge Date: 02/21/25 Disposition: Home, Self-Care Condition: Stable Prescriptions: Continue Aspirin EC 81 mg [Ecotrin 81 mg] 81 mg PO DAILY Amlodipine Besylate 10 mg [Norvasc 10 MG] 5 mg PO BID Temazepam 15 mg [Restoril 15 MG] 15 mg PO HS Mirtazapine 15 mg PO DAILY Hydrocodone/Acetaminophen [Hydrocodone-Acetamin 10-325 mg] 1 tab PO TID hydrOXYzine HCL [Hydroxyzine HCl] 50 mg PO BID Hydralazine HCl 100 mg PO BID Gabapentin [Neurontin ] 300 mg PO QID Losartan Potassium 100 mg PO DAILY Hydrocodone/Acetaminophen [Hydrocodone-Acetamin 5-325 mg] 1 tab PO Q6HPRN PRN #8 tablet MDD 4 PRN Reason: Pain Metoprolol Succinate 50 mg [Toprol Xl 50 MG] 50 mg PO QAM Follow up with: TAMMY SCHNEIDER MD [Primary Care Provider, [facility]] - Call for Appointment Referral Note: in one week
== END 2025-02-21 11:40 | disposition home or self-care (01) ==
LOC: ED 09:26 → INTOOBSV 14:31 → MED SURG 14:31 → UNDODISIN 02-21 11:40
PROVIDERS: ADMIT Internal Medicine; ATTEND Internal Medicine
DX: I16.0 Hypertensive urgency (principal); W19.XXXA Unspecified fall, initial encounter; S09.90XA Unspecified injury of head, initial encounter; E87.1 Hypo-osmolality and hyponatremia; M19.90 Unspecified osteoarthritis, unspecified site; I10 Essential (primary) hypertension; G43.909 Migraine, unspecified, not intractable, without status migrainosus; R41.0 Disorientation, unspecified; Z79.899 Other long term (current) drug therapy